=== PATIENT | male | born 1985 | race Caucasian/White ===

== ENCOUNTER 2021-11-24 16:40 | Emergency (ER) | payer BC ==
[~2021-11-24] VITALS: Ht 188 cm; Wt 77.1 kg
[2021-11-24 16:48] VITALS: BP 134/61
[2021-11-24 17:29] LABS: BASOPHIL % 0.2 % (0.0-0.2); EOSINOPHIL # 0.1 10^3/uL (0.0-0.2); LYMPHOCYTES # 2.94 10^3/uL1 (1.0-4.8); LYMPHOCYTES % 30.1 % (24.0-44.0); MEAN CORP HGB 30.4 pg (26-34); MONOCYTES # 0.8 10^3/uL (0.3-0.8); MONOCYTES % 7.8 % (5.0-12.0); NEUTROPHIL # 5.9 10^3/uL (1.8-7.7); NEUTROPHILS % 60.7 % (41.0-85.0); PLATELET COUNT 373 10^3/uL (150-400)
[2021-11-24 17:56] LABS: CARBON DIOXIDE 29.8 mmol/L (20.0-32)
--- NOTE | 2021-11-24 18:01 | ER.PDOC ---
General Chief Complaint: Chest Pain-Non Cardiac Nature Stated Complaint: CP Time seen by MD: 17:00 Source: patient Exam Limitations: no limitations History of Present Illness Initial Comments HEAVINESS left-sided chest and some radiation to left upper extremity lasting few minutes 3 hours ago, denies any residual discomfort no associated symptoms Severity/Quality: moderate Radiation: arms Activities at Onset: activity/exertion Nitro Today/Relief: No Nitro Taken Today Aspirin Today: No Aspirin Today Associated Symptoms: denies symptoms Prior symptoms/Treatment: Similar symptoms previous Allergies: Coded Allergies: amoxicillin (Verified Allergy, Unknown, UNK, 11/24/21) Past Medical History Medical History: no pertinent history Surgical History: no surgical history Social History Alcohol Use: occassionally Drug Use: none Reviewed Nursing Reviewed: Vital Signs, Abn. Noted All Other Systems: Reviewed and Negative Physical Exam General Appearance: No Apparent Distress, WD/WN HEENT: PERRL/EOMI, Normal ENT Inspection, TMs Normal, Pharynx Normal Neck: Non-Tender, Full Range of Motion, Supple, Normal Inspection Respiratory: chest non-tender, lungs clear, normal breath sounds, no respiratory distress, no accessory muscle use Cardiovascular: Normal Peripheral Pulses, Regular Rate, Rhythm, No Edema, No Gallop, No JVD, No Murmur Gastrointestinal: Normal Bowel Sounds, No Organomegaly, No Pulsatile Mass, Non Tender, Soft Extremities: Normal Range of Motion, Non-Tender, Normal Inspection, No Pedal Edema, No Calf Tenderness, Normal Capillary Refill Neurologic/Psychiatric: automation test developer II-XII NML as Tested, No Motor/Sensory Deficits, Alert, Normal Mood/Affect, Oriented x 3 Skin: Normal Color, Warm/Dry Lymphatic: No Adenopathy Results/Orders Results/Orders Orders - ZOEY LOZANO MD Cbc With Auto Diff (11/24/21 17:14) Comprehensive Metabolic Panel (11/24/21 17:14) Creatine Kinase (11/24/21 17:14) Creatine Kinase Mb (11/24/21 17:14) Probnp B-Type Senior Corporate Strategy Manager (11/24/21 17:14) PT (11/24/21 17:14) Partial Thromboplastin Time. (11/24/21 17:14) D-Dimer (11/24/21 17:14) Xr Chest 1v (11/24/21 17:16) Ekg-Routine (11/24/21 17:14) Troponin I High Sensitivity (11/24/21 17:14) Vital Signs Date Time Temp Pulse Resp B/P (MAP) Pulse Ox O2 Delivery O2 Flow Rate FiO2 11/24/21 16:48 98.8 92 18 134/61 (85) 99 Room Air 11/24/21 16:48 98.8 92 18 99 11/24/21 16:48 98.8 92 18 Laboratory Tests Test 11/24/21 17:23 White Blood Count 9.8 10^3/uL (4.5-11.0) Red Blood Count 5.14 10^6/uL (4.50-5.90) Hemoglobin 15.6 g/dL (13.9-16.3) Hematocrit 47.0 % (37.0-53.0) Mean Corpuscular Volume 91.4 fL (78-100) Mean Corpuscular Hemoglobin 30.4 pg (26-34) Mean Corpuscular Hemoglobin Concent 33.2 g/dL (33-36.5) Red Cell Distribution Width 12.0 % (11.5-14.5) Platelet Count 373 10^3/uL (150-400) Mean Platelet Volume 8.7 fL (7.8-11.0) Neutrophils (%) (Auto) 60.7 % (41.0-85.0) Lymphocytes (%) (Auto) 30.1 % (24.0-44.0) Monocytes (%) (Auto) 7.8 % (5.0-12.0) Neutrophils # (Auto) 5.9 10^3/uL (1.8-7.7) Lymphocytes # (Auto) 2.94 10^3/uL1 (1.0-4.8) Monocytes # (Auto) 0.8 10^3/uL (0.3-0.8) Absolute Immature Granulocyte (auto 0.02 10^3 u/L (0-2) Absolute Eosinophils (auto) 0.1 10^3/uL (0.0-0.2) Immature Granulocytes % 0.20 % (0.00-0.50) Eosinophils % 1.0 % (0.0-5.0) Basophils % 0.2 % (0.0-0.2) Basophils # 0.0 10^3/uL (0.0-0.1) Prothrombin Time 9.9 SEC (9.1-11.5) Prothrombin Time INR (Non-Therap) 1.0 Activated Partial Thromboplast Time 25.7 SEC (22.5-33.1) D-Dimer 0.19 mg/L (0.19-0.49) Sodium Level 138 mmol/L (132-145) Potassium Level 4.4 mmol/L (3.6-5.2) Chloride Level 102.0 mmol/L (96-109) Carbon Dioxide Level 29.8 mmol/L (20.0-32) Anion Gap 10.6 Blood Urea Nitrogen 17 mg/dL (7-18) Creatinine 1.06 mg/dL (0.59-1.40) Estimated GFR () 96.2 (>/=60) Est GFR (CKD-EPI)(Non-Afr [place] Islander) 79.5 (>/=60) BUN/Creatinine Ratio 16.0 Glucose Level 100 mg/dL (70-110) Calcium Level 9.5 mg/dL (8.4-10.5) Total Bilirubin 0.6 mg/dL (0.2-1.0) Aspartate Amino Transferase (AST) 22 U/L (0-35) Alanine Aminotransferase (ALT) 38 U/L (12-78) Alkaline Phosphatase 75 U/L (50-136) Total Creatine Kinase 209 U/L (39-308) Creatine Kinase MB 2.2 ng/mL (0.5-3.6) Troponin I High Sensitivity 5 ng/L (0-75) Pro-B-Type Natriuretic Peptide 7 pg/mL (0-125) Total Protein 7.9 g/dL (6.4-8.2) Albumin 4.5 g/dL (3.4-5.0) Globulin 3.4 Albumin/Globulin Ratio 1.323 EKG/XRAY/CT/US EKG: NSR, LVH ER DEPART Departure Time of Disposition: 18:45 Disposition: 01 HOME / SELF CARE / HOMELESS Impression: Primary Impression: Chest pain Condition: Stable Referrals: PCP,UNKNOWN (PCP) PRIMARY CARE PROVIDER Duration or Time Spent with Pa: PeteM ZOEY LOZANO MD Nov 24, 2021 18:01
[2021-11-24 18:50] VITALS: BP 142/84
--- NOTE | 2021-11-25 00:32 | PCM.EKG ---
[facility] Test Date: 2021-11-24 Test Time: 17:34:10 Pat Name: OUSMANE THOMAS Department: Patient ID: [facility]-[id number] Room: Gender: M Machine Setter Automatic: DORINDA : 1985 Requested By: ZEV BADILLO Order Number: [id number] Reading MD: Zev Badillo Measurements Intervals [place] Rate: 82 P: 85 PA: 146 QRS: 98 QRSD: 103 T: 54 QT: 362 QTc: 423 Interpretive Statements Sinus rhythm Borderline right axis deviation Probable left ventricular hypertrophy No previous ECG available for comparison Electronically Signed On 11-28-2021 9:03:18 INVENTORY CONTROL MANAGER by Zev Badillo Please click the below link to view image of tracing.
--- NOTE | 2021-11-25 00:36 | DIREP ---
PROCEDURE:CHEST 1 VIEW COMPARISON:None. INDICATIONS:CP FINDINGS: LUNGS/PLEURA:No significant pulmonary parenchymal abnormalities. No effusions. No pneumothorax VASCULATURE:Normal. Unremarkable pulmonary vasculature. CARDIAC:Normal. No cardiac silhouette abnormality or cardiomegaly. MEDIASTINUM:Normal. No visible mass or adenopathy. BONES:Normal. No fracture or visible bony lesion. OTHER:Negative. CONCLUSION:No acute disease. Dictated by: Akash Still MD on 11/24/2021 at 05:36 PM
== END 2021-11-24 18:51 | disposition home or self-care (01) ==
LOC: ER 16:40
DX: R07.9 Chest pain, unspecified (principal); Z88.0 Allergy status to penicillin
CPT/HCPCS: 36415; 71045; 80053; 82550; 82553; 83880; 84484; 85025; 85379; 85610; 85730; 93005; 99284